=== PATIENT | male | born 1960 | race Caucasian/White ===

== ENCOUNTER 2024-09-22 10:14 | Day surgery (SDC) | payer OTHER, SELFPAY ==
[2024-09-22] VITALS (9 sets, daily range): BP systolic 145–183; BP diastolic 68–93; BMI 39.3
[2024-09-22 11:44] LABS: Glucose - Point of Care 67 mg/dl (70-99)
[2024-09-22 13:34] LABS: Glucose - Point of Care 112 mg/dl (70-99)
--- NOTE | 2024-09-22 14:21 | ITS.CL.PACE ---
Life Insurance Salesperson - Pacemaker Implant
Pacemaker Implant
Procedure Report:
PACEMAKER IMPLANT REPORT
Primary Care Physician: Dr. Meseret Dorantes
Primary Apparel Stock Checker: Dr. Sebastien Almazan
Date of Procedure: September 22, 2024
Procedure:
1: Dual chamber pacemaker implantation with fluoroscopic guidance
Indication/Diagnosis:
1: Non-reversible symptomatic bradycardia due to: sinus node dysfunction with symptomatic bradycardia and intermittent high degree AV block
History: The patient is a 64-year-old male with a past medical history significant hypertension, obesity, persistent atrial fibrillation, and recurrent presyncope/syncope who is referred for pacemaker placement due to symptomatic bradycardia in the
setting of sinus node dysfunction and intermittent high degree AV block. The patient also has a nonspecific interventricular conduction delay on EKG for the past several years. Echo performed on September 20 showed preserved LV systolic function
with a visually estimated ejection fraction of 55 to 60%, severe left ventricular hypertrophy, severely dilated left atrium and mild to moderate right mitral regurgitation.
Antibiotic: Ancef 3 g IV
Sedation: Conscious sedation as per anesthesia staff
Description of Procedure: After informed consent was obtained, 'time out' was called and confirmed, the patient was prepped and draped in a sterile fashion. Lidocaine with epinephrine was used for local anesthesia. Central venous access was
obtained via subclavian venopuncture after a venogram from the left arm confirmed subclavian patency. An incision was made along the left chest and a pre-pectoral pocket was formed. Using a Seldinger technique and peel-away sheaths, the pacing
leads were placed under fluoroscopic guidance. Once testing (see below) showed adequate and stable function, the leads were secured using the suture sleeves. The pocket was liberally irrigated with antibiotic solution. The leads were connected to
the generator header and the leads and generator were placed within the pocket. Fluoroscopy confirmed stable lead position. The pocket was closed in the typical fashion.
IMPLANTS:
Company: Medtronic [id number], SN: [id number] left Pectoral
RA: Medtronic 5076/52, SN: [id number], RAA
RV: Medtronic 5076/58, SN: [id number], RV apical septum
DEVICE TESTING:
Sensing: RA 1.3 mV, RV 6.8 mV
Capture: RA 0.8 V@0.4ms, RV 0.5 V@0.4ms
Ohms: RA 437, RV 722
FINAL PROGRAMMING
Antonio Pacing: AAIR�DDDR 60-130 ppm
Complications: None.
Fluoroscopy Time (min): 12.1
Radiation Dose (mGy): 67
DAP (Gy.cm2): 8.2
CONCLUSIONS:
1: Successful implant of dual chamber permanent pacemaker
RECOMMENDATIONS:
1. Routine post-op care (tele, CXR, arm sling).
2. In-Office wound check within 7 days.
3. Office interrogation within 4 weeks.
Copy to: Dr. Meseret Dorantes
--- NOTE | 2024-09-22 16:31 | CM ---
Reviewed chart. Met with Mr. Estrella and his two sisters to review discharge plans. He states prior to admission he reside with his sister and brother in a one story home with three steps to enter. He states prior to admission he was independent
with ambulation and adls. He states he has a CPAP Machine at home and no other DME. He states he has a prescription plan and uses [facility]. The discharge plan is to return home with his sister and brother when medically stable.
[2024-09-22 16:56] LABS: Glucose - Point of Care 126 mg/dl (70-99)
--- NOTE | 2024-09-22 17:08 | PTCARENOTE ---
received pt post PPM. pt oriented to unit. pt is a paced on the monitor, hr in the 90s, vss. pt c/o pain in incision site, Tylenol given, see MAR. Pt educated on plan of care. left chest wall dressing is CDI. Call zulma w/in reach.
[2024-09-22] MEDS: NOVOLOG FLEXPEN-MODERATE RESISTANCE SC (17:22)
[2024-09-22] MEDS: TYLENOL 650 MG PO (17:27)
[2024-09-22] MEDS: CRESTOR 10 MG PO (17:27)
--- NOTE | 2024-09-22 18:05 | RESPNOTE ---
spoke with patient regarding cpap. patient brought own unit, order already in EMR. reviewed liability waiver, patient signed.
waiver scanned in EMR chart.
[2024-09-22] MEDS: ANCEF 5 IV (20:00)
[2024-09-22] MEDS: ZESTRIL 20 MG PO (20:00)
[2024-09-22 22:52] LABS: Glucose - Point of Care 99 mg/dl (70-99)
--- NOTE | 2024-09-22 23:41 | PTCARENOTE ---
L chest wall soft and non-tender. With ooze in the middle of the Tegaderm- no pain complaints. sling provided in place of immobilizer and pillow supporting the L shoulder. A paced on the monitor.
[2024-09-23 04:29] VITALS: BP 149/82
[2024-09-23] MEDS: ANCEF 5 IV (04:34)
[2024-09-23 04:57] LABS: Hematocrit 43.2 % (39.0-52.0); Mean Corp Hgb Conc. 34.7 g/dL (33.0-37.0); Mean Corpuscular Hgb 30.3 pg (27.0-31.0); Mean Corpuscular Volume 87.3 fL (80.0-94.0); Mean Platelet Volume 9.8 fL (7.4-10.4); Platelet Count 228 10^3/uL (130-400); Red Blood Cell Count 4.95 10^6/uL (4.70-6.10); Red Cell Dist. Width 12.6 % (11.5-14.5); White Blood Cell Count 10.2 10^3/uL (4.8-10.8)
[2024-09-23 05:24] LABS: Blood Urea Nitrogen 16 mg/dl (9-20); Calcium 9.8 mg/dl (8.4-10.2); Carbon Dioxide 26 mmol/L (22-30); Chloride 101 mmol/L (98-107); Estimated Creatinine Clearance 123 ml/min; Glucose 129 mg/dl (70-99); Magnesium 1.7 mg/dl (1.6-2.3); Potassium 4.5 mmol/L (3.5-5.1); Sodium 137 mmol/L (135-145); eGFR > 60.00
--- NOTE | 2024-09-23 06:07 | PTCARENOTE ---
care link express completed.
[2024-09-23 07:30] VITALS: BP 139/76
[2024-09-23 07:32] LABS: Glucose - Point of Care 152 mg/dl (70-99)
--- NOTE | 2024-09-23 08:00 | PTCARENOTE ---
Assumed care of pt from prev nsg shift; Pt AAOx3 w/no c/o CP or SOB. Pt reporting some 'tightness' at the PPM incision site, but no pain. Pt's VS stable w/HR 60, BP 139/76. Pt is A paced on telemetry monitoring. Pt w/L chest wall dressing site
w/dressing Dry & intact w/very small area of old shadowing, marked & unchanged from prev shift assessment. Advised pt of activity restrictions & plan of care. Pt awaiting D/C today. Plan of care ongoing.
[2024-09-23 09:00] LABS: Glycohemoglobin (HgbA1c) 6.5 % (4.0-5.6)
[2024-09-23] MEDS: TOPROL XL 25 MG PO (09:18)
[2024-09-23] MEDS: NOVOLOG FLEXPEN-MODERATE RESISTANCE 1 UNITS SC (09:18)
[2024-09-23] MEDS: ZESTRIL 20 MG PO (09:18)
[2024-09-23] MEDS: NORVASC 5 MG PO (09:18)
--- NOTE | 2024-09-23 09:53 | W.PN.CARDCBS ---
Addendum entered and electronically signed by Italo Peterson MD 09/23/24 10:19:
I saw and examined the patient.
The Manufacturing Advisor's note was reviewed and I agree with the note.
Comment:
GEN: No distress, awake, Ox3
HEENT: supple, anicteric, mmm
LUNGS: CTA, no wheezes/rales
CV: Reg, S1/S2, 1/6 syst LSB, no murmur
ABD: soft, BS+, NT/ND
EXT: No edema
NEURO: Gross non-focal
SKIN: L pacer site stable
Plan:
Doing well status post pacemaker. Restart Toprol 25 mg daily.
Hold Xarelto until seen next week at [facility].
Chest x-ray stable with no pneumothorax
Original Note:
Today's Communication / Plan
-
Resume Toprol 25 mg daily
Continue to hold Xarelto until incision check on 09/25/2024
Wound care instructions and activity limitations discussed with patient
Stable for discharge
Outpatient cardiology follow-up and incision check schedule
Impression / Plan
-
Primary Care Physician: Dr. Meseret Dorantes
Primary Managed Care Liaison: Dr. Sebastien Almazan
Impression:
Elective admission 09/22/2024 for pacemaker implant
Non-reversible symptomatic bradycardia due to: sinus node dysfunction with symptomatic bradycardia and intermittent high degree AV block
Status post dual-chamber Medtronic pacemaker 09/22/2024
Hypertension
Persistent atrial fibrillation
Recurrent syncope
Symptomatic sinus node dysfunction/AV block
Mitral regurgitation
Echo 09/20/2024:EF 55 to 60%, severe LVH, severely dilated left atrium and mild to moderate MR
Plan:
Presented 09/22/2024 for elective pacemaker implant secondary to nonreversible symptomatic bradycardia with sinus node dysfunction and high degree intermittent AV block with history of syncope
Underwent successful dual-chamber Medtronic pacemaker with Dr. Gerardo
Patient seen and examined and reports that he feels well. Able to ambulate around unit without difficulty.
Postprocedural chest x-ray now with pacemaker, no pneumothorax
Incision check shows stable pacemaker site with Aquacel in place, site clean dry intact without evidence of hematoma or ecchymosis
Review of telemetry intermittent paced rhythm. CareLink interrogation performed which shows appropriate pacemaker function
Stable labs post pacemaker implant
Patient will resume Toprol 25 mg daily and can be uptitrated as needed as outpatient
Patient will continue to hold Xarelto until incision check which is scheduled on 09/25/2024
Continue outpatient regimen of amlodipine, lisinopril, rosuvastatin and insulin
Wound care instructions and activity limitations discussed with patient
Outpatient cardiology follow-up has been arranged
[facility] 09/22/2024:
The patient is a 64-year-old male with a past medical history significant hypertension, obesity, persistent atrial fibrillation, and recurrent presyncope/syncope who is referred for pacemaker placement due to symptomatic bradycardia in the setting
of sinus node dysfunction and intermittent high degree AV block. The patient also has a nonspecific interventricular conduction delay on EKG for the past several years. Echo performed on September 20 showed preserved LV systolic function with a
visually estimated ejection fraction of 55 to 60%, severe left ventricular hypertrophy, severely dilated left atrium and mild to moderate mitral regurgitation.
Progress Note - Managed Care Liaison
Subjective
Date of Service: September 23, 2024
Patient seen and examined and reports that he feels well. Able to ambulate around unit without difficulty. Eager to go home
Objective
Labs:
09/23/24 04:41
09/23/24 04:41
Labs
Hgb 15.0 g/dL (13.0-18.0) 09/23/24 04:41
Hct 43.2 % (39.0-52.0) 09/23/24 04:41
Plt Count 228 10^3/uL (130-400) 09/23/24 04:41
Sodium 137 mmol/L (135-145) 09/23/24 04:41
Potassium 4.5 mmol/L (3.5-5.1) 09/23/24 04:41
BUN 16 mg/dl (9-20) 09/23/24 04:41
Creatinine 0.7 mg/dL (0.7-1.3) 09/23/24 04:41
Glucose 129 mg/dl (70-99) H 09/23/24 04:41
Vital Signs and I&O:
Vital Signs
Temp Pulse Resp BP Pulse Ox
98.4 F 60 18 139/76 96
09/23/24 07:34 09/23/24 08:00 09/23/24 07:34 09/23/24 07:30 09/23/24 07:34
Vital Signs
Temp Pulse Resp BP Pulse Ox
98.4 F 60 18 139/76 96
09/23/24 07:34 09/23/24 08:00 09/23/24 07:34 09/23/24 07:30 09/23/24 07:34
Physical Exam
Physical Exam
GEN: No distress, awake, Ox3 sitting up in chair
HEENT: supple, anicteric, mmm
LUNGS: CTA, no wheezes/rales
CV: Reg, S1/S2, 1/6 syst murmur
Chest: Pacemaker implant site with Aquacel dressing, clean dry intact, no evidence of hematoma ecchymosis or infection
ABD: soft, BS+, NT/ND
EXT: No edema, clubbing or cyanosis
NEURO: Gross non-focal
SKIN: No rash, warm, dry, pink
--- NOTE | 2024-09-23 10:04 | W.DS.TRANS ---
DC Summary - Rural Sociologist
-
Discharge Instructions:
Discharge Diagnosis/Procedures Pacemaker implant
Diet Low Cholesterol,Diabetic, Carb Controlled
Driving Restrictions No driving for 1 week
Bathing Restrictions After dressing removed
Instructions:
Stand-Alone Forms: DC Inst - Implanted Device
Changes to Home Medications: Yes
Discharge Medications:
DC Medications w/original date entered in [employer]
amlodipine 5 mg tablet (Norvasc) 5 mg PO DAILY 09/22/24
cholecalciferol (vitamin D3) 25 mcg (1,000 unit) tablet (Vitamin D3) 25 mcg PO DAILY 09/22/24
cyanocobalamin (vitamin B-12) 1,000 mcg tablet (Vitamin B-12) 1,000 mcg PO DAILY 09/22/24
lisinopril 20 mg tablet 20 mg PO BID 09/22/24
metformin 500 mg tablet,extended release 24 hr 500 mg PO BID 09/22/24
metoprolol succinate 25 mg tablet,extended release 24 hr (Toprol XL) 25 mg PO DAILY #1 tab 09/22/24
metoprolol succinate 50 mg tablet,extended release 24 hr (Toprol XL) 50 mg PO DAILY #1 tab 09/22/24
multivitamin 1 tab PO DAILY 09/22/24
rivaroxaban 20 mg tablet (Xarelto) 20 mg PO QPM 09/22/24
rosuvastatin 10 mg tablet 10 mg PO DAILY 09/22/24
Home Medication Changes
Hold metformin until a.m. of 09/23/2024
Hold Xarelto until wound check completed 09/25/2024
Resume Toprol 25 mg daily
Pending Results: No
Total time spent discharging patient (in min): 33
[2024-09-23 11:54] VITALS: BP 146/78
--- NOTE | 2024-09-23 12:20 | PTCARENOTE ---
Pt's IV line & telemetry pack removed. This RN discussed D/C instructions including wound care w/pt. Pt taken out via wheelchair w/his sister driving him home.
[2024-09-25 18:09] LABS: Hepatitis C Antibody Negative (Negative)
== END 2024-09-23 12:20 | disposition home or self-care (01) ==
LOC: CATH 10:14
PROVIDERS: Nurse Practitioner Adult Health; ATTENDING PHYSICIAN Internal Medicine Interventional Cardiology; PRIMARYCARE PHYSICIAN Internal Medicine; REFERRING PHYSICIAN Internal Medicine Cardiovascular Disease
DX: I49.5 Sick sinus syndrome (principal); I48.92 Unspecified atrial flutter; I48.19 Other persistent atrial fibrillation; I11.9 Hypertensive heart disease without heart failure; E11.9 Type 2 diabetes mellitus without complications; G47.33 Obstructive sleep apnea (adult) (pediatric); E66.9 Obesity, unspecified; Z68.39 Body mass index [BMI] 39.0-39.9, adult; I44.7 Left bundle-branch block, unspecified; Z79.84 Long term (current) use of oral hypoglycemic drugs; Z79.01 Long term (current) use of anticoagulants; Z79.899 Other long term (current) drug therapy; I34.0 Nonrheumatic mitral (valve) insufficiency
CPT/HCPCS: 33208; 71045; 80048; 82962; 83036; 83735; 85027; 86803; 93005; C1769; C1785; C1887; C1892; C1898; Q9967

== ENCOUNTER 2025-08-08 07:51 | Day surgery (SDC) | payer OTHER, SELFPAY ==
[2025-07-26 13:18] LABS: Hematocrit 41.4 % (39.0-52.0); Hemoglobin 14.6 g/dL (13.0-18.0); Mean Corp Hgb Conc. 35.3 g/dL (33.0-37.0); Mean Corpuscular Volume 84.1 fL (80.0-94.0); Nucleated Red Blood Cells % 0 % (-); Platelet Count 255 10^3/uL (130-400); Red Cell Dist. Width 12.8 % (11.5-14.5)
[2025-07-26 13:26] LABS: INR 1.19; PT 15.4 Sec (11.4-14.6)
[2025-07-26 13:42] LABS: ALT (SGPT) 24 U/L (0-50); AST (SGOT) 31 U/L (17-59); Albumin 4.6 g/dl (3.5-5.0); Alkaline Phosphatase 63 U/L (38-126); Blood Urea Nitrogen 13 mg/dl (9-20); Calcium 9.8 mg/dl (8.4-10.2); Carbon Dioxide 23 mmol/L (22-30); Chloride 103 mmol/L (98-107); Glucose 116 mg/dl (70-99); Magnesium 1.7 mg/dl (1.6-2.3); Potassium 4.5 mmol/L (3.5-5.1); Sodium 134 mmol/L (135-145); Total Protein 7.5 g/dl (6.3-8.2); eGFR > 60.00
[2025-07-26 13:46] VITALS: BMI 39.4
[2025-08-08] VITALS (10 sets, daily range): BP systolic 103–152; BP diastolic 60–77; BMI 39.3
[2025-08-08 09:13] LABS: Glucose - Point of Care 142 mg/dl (70-99)
--- NOTE | 2025-08-08 10:52 | ITS.CL.ABL ---
Donkey Doctor - Ablation
Ablation
Procedure Report:
Primary Rn Chemical Dependency: Dr Sebastien Almazan
Procedure Date: 08/08/2025
Patient History:
Patient is a pleasant 65-year-old male with a past medical history significant for. Sick sinus syndrome dual-chamber pacemaker implanted 09/22/2024, hypertension, LVH, diabetes mellitus type 2, obstructive sleep apnea, obesity, and symptomatic
persistent atrial fibrillation.
See H&P for complete details.
Indication:
Symptomatic persistent atrial fibrillation
Arrhythmia Specific History:
Prior Medical Therapies for Rate and Rhythm Control:
X Beta-sherry
[ ] Calcium channel-sherry
[ ] Amiodarone
[ ] Dronederone
[ ] Sotalol
[ ] Flecainide
[ ] Dofetilide
[ ] Options limited by bradycardia
[ ] Options limited by comorbid renal disease
Prior Procedural Therapies for AF/AFL:
X Cardioversion
[ ] Pulmonary Vein Isolation
[ ] Posterior Wall Isolation
[ ] Additional lines (Specify)
[ ] Surgical Gu-MAZE or PVI (Specify)
Procedure Performed:
X AF ablation procedure (01957) -- includes LA/CS pacing, trans-septal, 3D mapping, + ICE
[ ] +IV drug (55157)
[ ] +Other Arrhythmia (63302)
X +Other AF Line/ablation (51851) x2 -- floor line, roof line, posterior wall isolation
Risks and expected recovery has been explained in detail. Alternative options have been explored, and in a shared-decision making fashion we have decided that this was the most appropriate procedure.
Method
NPO status confirmed. Grounding pad applied. Defibrillator pads applied. Continuous surface ECG, pulse oximetry, and blood pressure were monitored. Procedure was performed under general anesthesia, with anesthesia services.
Both groins were clipped, prepped with Chloraprep, and draped in sterile fashion. Time out was called. Local anesthesia administered with bupivacaine. The right femoral vein was accessed for catheter placement, using ultrasound guidance (images
saved to record), micro-puncture needle/wire, and modified seldinger technique. 3 sheaths were placed. The following catheters were used:
[ ] Tacticath SE (D/F Curve) ablation catheter
X Viewflex 9Fr ICE catheter
X Inquiry decapolar 6Fr diagnostic catheter
[ ] CRD Hex 6Fr
X FlexCath Contour 10 Fr with PulseSelect PFA Catheter
X Advisor HD Grid Mapping Catheter, SE
[ ] Acusp3dsystems AcuNav 8 Fr ICE catheter
[ ]Other: [ ]
Intracardiac ultrasound (ICE) was carefully advanced into the right atrium to guide sheath placement over a J-wire, catheter placement, guide trans-septal puncture, identify potential complications, identify anatomic structures and ensure proper
contact between ablation catheter and tissue.
Heparin was given prior to trans-septal puncture. Heparin was given to achieve and maintain a target ACT of 300-400 seconds throughout the procedure.
Trans-septal access was performed under ICE guidance. The trans-septal puncture was performed with a SafeSept wire through a Brockenbrough needle assembly through the steerable sheath. The wire was visualized as it entered the LSPV and system
advanced under ICE guidance and fluoroscopy into the LA. The Brockenbrough needle assembly, SafeSept wire and sheath dilator were removed under negative pressure. LA pressure was measured and recorded.
ICE and 3D mapping was performed to identify relevant cardiac structures. A careful 3D map was created to assess for regions of low-voltage and abnormal electrogram signals using HD grid mapping catheter and PulseSelect catheter. Additional mapping
was performed as outlined below. A 200 J synchronized direct-current cardioversion was performed however patient returned to atrial fibrillation. Therefore mapping and ablation was performed in AF.
PulseSelect catheter was advanced over J-wire to the ostium of each vein. Pulmonary vein isolation was performed with ostial and antral lesions in a circumferential manner. Contact was visualized via EAM, ICE, fluoroscopy, and EGM signals.
After accomplishing pulmonary venous isolation, mapping identified additional areas likely to be extra PV contributors to atrial fibrillation. These areas demonstrated patchy low voltage as well as complex fractionated electrograms. These areas can
be sites for the formation of rotors which can drive and maintain atrial fibrillation. These areas are known to be significant contributors to initiation and perpetuation of atrial fibrillation.
Additional energy applications/additional ablation sets targeted extra PV contributors to atrial fibrillation.
Targets for additional PFA ablation included: LA posterior wall targeted with pulsed electric field energy isolating the posterior wall of the left atrium. Posterior wall isolation was performed by anchoring the J-wire within the pulmonary vein and
placing the PulseSelect catheter in contact posterior wall as visualized by aforementioned methods.
After ablation of the posterior wall, targets remained including:
- Inferior LA floor
- Anterior LA roof
- The ridge of tissue between the left atrial appendage and the left sided pulmonary veins (Ligament of Trav)
These areas were ablated using pulsed electric field energy eliminating the extra PV contributors to atrial fibrillation.
Following completion of ablation lesions, a post-ablation voltage/activation map was performed in atrial pacing by patient's device. Entrance and exit block were confirmed for each vein and the posterior wall. Acute reconnection was noted at the
left superior pulmonary vein and a repeat ablation was then performed at the left superior pulmonary vein. Repeat mapping demonstrated persistent entrance and exit block with lack of signals entering the vein. Additionally, patient was noted to be
in a concentrically activated nonsustained atrial flutter. Electroanatomic mapping of the left right atrium and right atrium along with pacing yielded termination of the arrhythmia without ability to effectively map or entrain the arrhythmia.
Again, arrhythmia is nonsustained and therefore unable to map and ablate. Patient remained in sinus rhythm for the remainder of the procedure.
Catheter and sheath were removed from the left atrium and post-ablation intracardiac echo evaluation was consistent with pre-ablation with no changes and no pericardial effusion and there is no left atrial thrombus or left ventricle thrombus seen.
Electrophysiology study was performed. Hemostasis was obtained with figure of 8 stitch for each groin and with manual pressure. Protamine was used for reversal.
Estimated Blood Loss
5 mL
Complications
None
Fluoroscopy: 14.2 minutes; 296.96 mGy; DAP 40.1
LA Pressure: Pre 18 mmHg, post 17 mmHg
Baseline Intervals:
Rhythm: AF, OPTOELECTRONICS ENGINEER
QRS: 191 ms
QT: 481 ms
Post-Procedure Intervals:
MO: 187 ms
QRS: 179 ms
QT: 472 ms
QTc: 474 ms
Patient AV sequential pacing and dependent
Recommendations
- Bedrest with straight-leg precautions as ordered
- Anticipate same day discharge if patient meeting clinical metrics
- Resume home medications as indicated
- Ok to resume anticoagulation tonight if patient and groin sites stable
- Plan for follow-up in office as scheduled
� Early recurrence of arrhythmia, would suggest antiarrhythmic medical therapy for maintenance sinus rhythm during healing phase with continued aggressive risk factor modification
John Nix DO, FACC, RS
Clinical Cardiac Saddle Stitcher
cc: Dr Sebastine Almazan; Dr Meseret Dorantes
[2025-08-08 11:44] LABS: ACT-LR - POC 232 Seconds (116-155)
[2025-08-08 11:51] LABS: Glucose - Point of Care 123 mg/dl (70-99)
[2025-08-08 11:58] LABS: ACT-LR - POC 239 Seconds (116-155)
[2025-08-08 12:15] LABS: ACT-LR - POC 277 Seconds (116-155)
[2025-08-08 12:32] LABS: ACT-LR - POC 343 Seconds (116-155)
[2025-08-08 12:58] LABS: ACT-LR - POC 318 Seconds (116-155)
[2025-08-08 13:23] LABS: ACT-LR - POC 348 Seconds (116-155)
[2025-08-08 13:30] LABS: Glucose - Point of Care 151 mg/dl (70-99)
[2025-08-08 13:53] LABS: ACT-LR - POC 237 Seconds (116-155)
[2025-08-08 16:08] LABS: Glucose - Point of Care 208 mg/dl (70-99)
== END 2025-08-08 18:50 | disposition home or self-care (01) ==
LOC: CATH 07:51
PROVIDERS: ATTENDING PHYSICIAN Internal Medicine Cardiovascular Disease; FAMILY PHYSICIAN Internal Medicine; OTHER PHYSICIAN Internal Medicine Cardiovascular Disease
DX: I48.19 Other persistent atrial fibrillation (principal); I10 Essential (primary) hypertension; E78.5 Hyperlipidemia, unspecified; E66.9 Obesity, unspecified; E11.29 Type 2 diabetes mellitus with other diabetic kidney complication; Z79.899 Other long term (current) drug therapy; Z79.01 Long term (current) use of anticoagulants; G47.33 Obstructive sleep apnea (adult) (pediatric); Z79.84 Long term (current) use of oral hypoglycemic drugs; I49.5 Sick sinus syndrome; I44.7 Left bundle-branch block, unspecified; F17.290 Nicotine dependence, other tobacco product, uncomplicated
CPT/HCPCS: C1733; C1766; C1732; C1894; C1730; C1769; C1892; C1759; 36415; 75572; 80053; 82962; 83735; 85025; 85347; 85610; 86850; 86900; 86901; 93005; 93656; 93657; Q9967